=== PATIENT | female | born 1985 | race Caucasian/White ===

== ENCOUNTER → 2021-03-20 10:33 | Outpatient (CLI) | payer OTHER, SELFPAY ==
--- NOTE | 2021-03-20 | DI.US.S_ITS ---
PROCEDURE: US OB <= 14 WEEKS FETUS INDICATIONS: Threatened OUTSIDE/PRIOR DATING DATA: Last menstrual period (LMP): 01/31/2021. LMP-based estimated date of delivery (JAMES): 11/07/2021. First dating scan (date and location): 03/20/2021. Estimated date of delivery (JAMES) from first dating scan: 11/10/2021. TECHNIQUE: Real-time scanning was performed of the fetus and maternal pelvic organs, with image documentation. Endovaginal scanning was also performed to better visualize the fetus and maternal ovaries. COMPARISON: None. FINDINGS: Embryo: Single living intrauterine gestation with a heart rate of 125 beats per minute. [place]-rump length is 6 mm corresponding to a 6 week 3 day gestation. Yolk sac is slightly irregular. Complex echogenicity focus within the right uterus measuring 30 mm x 15 mm x 5 mm is present. Measurement variability in dating: +/- 4 weeks by LMP, +/- 7 days by mean sac diameter (use before 6 weeks gestation if crown-rump length not able to be measured), +/- 5 days by crown-rump length (up to 8 weeks 6 days gestation), +/- 7 days by crown-rump length (up to 13 weeks 6 days gestation). Maternal organs: Ovaries within normal limits bilaterally. Left-sided corpus luteal cyst. . IMPRESSION: 1. Single living intrauterine gestation. Slightly irregular yolk sac. Clinical and sonographic follow-up recommended. 2. Complex echogenicity focus within the right uterus, which may indicate subchorionic hemorrhage versus sequelae of demised twin Dictated by: Peyton Rhodes M.D. on 03/20/2021 at 13:57 Approved by: Peyton Rhodes M.D. on 03/20/2021 at 13:59
== END ==
PROVIDERS: PCP Nurse Practitioner; Referring Provider Midwife; Visit Provider Midwife
DX: O20.0 Threatened abortion (principal)
CPT/HCPCS: 76801; 76817

== ENCOUNTER → 2021-04-28 12:40 | Outpatient (CLI) | payer OTHER, SELFPAY ==
--- NOTE | 2021-04-28 | DI.US.S_ITS ---
PROCEDURE: US OB <= 14 WEEKS FETUS INDICATIONS: FOLLOW UP ULTRASOUND 03/20/2021 OUTSIDE/PRIOR DATING DATA: Last menstrual period (LMP): 01/31/2021. LMP-based estimated date of delivery (JAMES): 11/07/2021. First dating scan (date and location): 03/20/2021. Estimated date of delivery (JAMES) from first dating scan: 11/10/2021. TECHNIQUE: Real-time scanning was performed of the fetus and maternal pelvic organs, with image documentation. Endovaginal scanning was also performed to better visualize the fetus and maternal ovaries. COMPARISON: [facility], , OB <= 14 WEEKS FETUS, 03/20/2021, 10:48. FINDINGS: Embryo: Single live intrauterine with crown-rump length measuring 5.5 cm corresponding to 12 weeks 1 day. There is a focus of decreased echogenicity measuring 6.5 x 2.7 x 4.5 cm suggestive of perigestational hemorrhage. Yolk sac has a somewhat calcified appearance. Heart rate: 169 beats per minute. Measurement variability in dating: +/- 4 weeks by LMP, +/- 7 days by mean sac diameter (use before 6 weeks gestation if crown-rump length not able to be measured), +/- 5 days by crown-rump length (up to 8 weeks 6 days gestation), +/- 7 days by crown-rump length (up to 13 weeks 6 days gestation). Maternal organs: Ovaries not well seen on the left. Right ovary is unremarkable. . IMPRESSION: 1. Single live intrauterine . 2. Focus of decreased echogenicity suggestive of subchorionic hemorrhage. 3. Appearance of possibly partially calcified yolk sac. This could be leasing representative of prior questionable twin demise. Dictated by: Quin Borrero M.D. on 04/28/2021 at 17:22 Approved by: Quin Borrero M.D. on 04/28/2021 at 17:25
== END ==
PROVIDERS: PCP Family Medicine; Referring Provider Midwife; Visit Provider Midwife
DX: Z34.91 Encounter for supervision of normal pregnancy, unspecified, first trimester (principal); Z3A.12 12 weeks gestation of pregnancy
CPT/HCPCS: 76801; 76817

== ENCOUNTER → 2021-06-26 12:17 | Outpatient (CLI) | payer OTHER, SELFPAY ==
--- NOTE | 2021-06-26 | DI.US.S_ITS ---
PROCEDURE: US OB >= 14 WEEKS FETUS INDICATIONS: Encounter for supervision of normal , uns OUTSIDE/PRIOR DATING DATA: Last menstrual period (LMP): January 31, 2021. LMP-based estimated date of delivery (JAMES): November 07, 2021. First dating scan (date and location): March 20, 2021. Estimated date of delivery (JAMES) from first dating scan: November 10, 2021. The calculations are made using the ultrasound right JAMES of November 10, 2021. TECHNIQUE: Real-time scanning was performed of the fetus, with image documentation and biometric measurements. Endovaginal scanning: Not performed COMPARISON: None. FINDINGS: General: A single living intrauterine gestation is present. Placenta: Placental position is posterior fundal. Unable to assess for placenta previa given imaging limitations due to lack of amniotic fluid. Amniotic fluid index: 0.6 cm, normal range is 5-24 cm. Single deepest vertical pocket is 0.6 cm. heart rate: 140 beats per minute. Maternal cervical canal: 4.7 cm long. Normal lower limit is 2.5 cm. biometrics: Biparietal diameter: 4.8 cm, correlating with 20 weeks and 4 days Head circumference: 17.4 cm, correlating with 19 weeks and 6 days Abdominal circumference: 15.2 cm, correlating with 20 weeks and 3 days Femur length: 3.1 cm, correlating with 19 weeks and 5 days Clinically estimated gestational age: 20 weeks and 3 days Composite gestational age from present scan: 20 weeks and 1 day Estimated weight and percentile: 331 g, correlating with the 27th percentile Anatomic survey: anatomic evaluation is significantly limited due to lack of amniotic fluid. The limited visualized structures appear grossly unremarkable. IMPRESSION: 1. Single living intrauterine gestation with estimated sonographic gestational age of approximately 20 weeks and 1 day versus 20 weeks and 3 days based off initial dating ultrasound. Expected interval growth has occurred. 2. Severe oligohydramnios with four-quadrant WILMER measuring 0.6 cm. 3. Nondiagnostic evaluation for assessment of anatomy secondary to severe oligohydramnios. No gross abnormalities identified. Findings were discussed telephonically with patient's clinical team (Sarahi Haas CNM from patient's referrring clinic, Dr. Acevedo the on-call coal shoveler) as well as the patient. The patient was given instructions to go to [facility] for triage and likely transfer to a tertiary care center with [facility] capabilities. We strive to produce accurate, complete, and clear reports of imaging services. To assist us in improving patient care, this report was composed using standard report templates and voice recognition software. Therefore, it may contain abnormal punctuation, insertions and/or omissions. Occasional wrong-word or sound-alike substitutions may occur. Though we review the report and make efforts to correct it, we do recommend that the report be read carefully in proper context to recognize any text inaccuracies. Dictated by: Josh Quiroga M.D. on 06/26/2021 at 14:24 Approved by: Josh Quiroga M.D. on 06/26/2021 at 14:38
== END ==
PROVIDERS: PCP Family Medicine; Referring Provider Registered Nurse; Visit Provider Registered Nurse
DX: O41.02X0 Oligohydramnios, second trimester, not applicable or unspecified (principal); Z3A.20 20 weeks gestation of pregnancy
CPT/HCPCS: 76811